=== PATIENT | female | born 2000 | race Caucasian/White ===

== ENCOUNTER 2022-01-05 16:44 | Emergency (ER) | payer SELFPAY ==
[~2022-01-05] VITALS: Ht 160 cm; Wt 95.5 kg
[2022-01-05 16:48] VITALS: TEMP 97.8
[2022-01-05 17:22] VITALS: BP 115/72; PULSE 90
== END 2022-01-05 17:22 | disposition home or self-care (01) ==
LOC: COL.ER 16:44
DX: S00.531A Contusion of lip, initial encounter (principal); S00.81XA Abrasion of other part of head, initial encounter; Z28.311 Partially vaccinated for COVID-19; W22.8XXA Striking against or struck by other objects, initial encounter